=== PATIENT | female | born 1985 | race Caucasian/White ===

== ENCOUNTER 2022-09-29 15:13 | Emergency (ER) | payer BC, MEDICAID ==
[~2022-09-29] VITALS: Ht 152.4 cm; Wt 106.4 kg
[2022-09-29 16:00] VITALS: PULSE 77; RESP 12; TEMP 99.1; O2SAT 98
[2022-09-29 16:07] LABS: Basophils # (auto) 0.1 10 ^3/uL (0-0.2); Basophils % (auto) 1.3 % (0.0-2.0); Eosinophils # (auto) 0 10 ^3/uL (0-0.8); Hematocrit 41.8 % (36.0-46.0); Hemoglobin 13.9 g/dL (12.2-16.2); Lymphocytes # (auto) 2.7 10 ^3/uL (0.4-5.4); Lymphocytes % (auto) 27.9 % (10.0-50.0); Mean Corpuscular Hemoglobin 27.9 pg (28.0-32.0); Mean Corpuscular Hgb Conc. 33.3 g/dL (32.0-36.0); Mean Corpuscular Volume 83.7 fL (80.0-100.0); Monocytes # (auto) 0.7 10 ^3/uL (0-1.3); Monocytes % (auto) 7.2 % (0.0-12.0); Neutrophils # (auto) 6.1 10 ^3/uL (1.6-8.6); Neutrophils % (auto) 63.6 % (37.0-80.0); Nucleated Red Blood Cells % 0.1 %; Red Blood Cells 4.99 10^6/uL (4.0-5.20); Red Cell Distribution Width 13.7 % (11.8-14.3); White Blood Cell 9.6 10^3/uL (4.4-10.8)
[2022-09-29 16:35] LABS: INR 0.99 (0.9-1.15); Partial Thromboplastin Time 28.1 SEC (24.5-34.5)
[2022-09-29] MEDS ORDERED: KETOROLAC TROMETH 30 MG/ML 1ML VIAL IV ONE (18:15)
[2022-09-29 19:00] VITALS: BP 114/75; PULSE 75; RESP 13; O2SAT 99
== END 2022-09-29 19:06 | disposition home or self-care (01) ==
LOC: ER 15:13
DX: D25.9 Leiomyoma of uterus, unspecified (principal); N93.8 Other specified abnormal uterine and vaginal bleeding; R10.2 Pelvic and perineal pain
CPT/HCPCS: 36415; 76830; 76856; 84702; 85025; 85610; 85730; 96374; 99285; J1885